=== PATIENT | female | born 2000 | race African-American/Black ===

== ENCOUNTER → 2020-06-23 | Outpatient (REF) | payer OTHER | LOC: M SFHCLERA 08:16 | PROVIDERS: ATTEND Physician Assistant | DX: J02.9 Acute pharyngitis, unspecified (principal) ==

== ENCOUNTER 2021-11-22 15:16 | Emergency (ER) | payer OTHER ==
[~2021-11-22] VITALS: Ht 167.6 cm; Wt 77.8 kg
[2021-11-22 15:17] VITALS: BP 139/78
[2021-11-22] MEDS ORDERED: ACETAMINOPHEN 500 MG TAB PO ONE (16:10)
[2021-11-22] MEDS ORDERED: FAMOTIDINE IV BAG 20 MG in IV 1 EA IV ONE (16:20)
[2021-11-22] MEDS ORDERED: AMOX500C PO (16:46)
[2021-11-22] MEDS ORDERED: AMOXICILLIN 500 MG CAP PO ONE (16:50)
[2021-11-22] MEDS ORDERED: FAMOTIDINE INJ 20MG/2ML VIAL (S0028 PER 1) IV ONE (17:00)
[2021-11-22] MEDS ORDERED: guaiFENesin ER 600 MG TAB PO SCH (21:00)
== END 2021-11-22 17:11 | disposition home or self-care (01) ==
LOC: M ED 15:16
DX: J02.9 Acute pharyngitis, unspecified (principal); R68.83 Chills (without fever)

== ENCOUNTER 2021-11-24 17:55 | Inpatient (IN) | payer OTHER ==
[~2021-11-24] VITALS: Ht 167.6 cm; Wt 74.5 kg
[~2021-11-24 17:55] MED LIST: AMOX500C PO
[2021-11-24] MEDS ORDERED: ACETAMINOPHEN TAB 650MG DOSE (2X325MG) PO ONE (18:25)
[2021-11-24 19:37] LABS: BASO % 0.3 % (0.0-1.0); EOS % 0.2 % (0.0-3.0); HEMATOCRIT 36.7 % (36.0-47.0); HEMOGLOBIN 11.9 g/dl (12.0-15.5); LYMPH # 1.4 10^3/uL (1.5-5.0); LYMPH % 12.1 % (24.0-44.0); MEAN CORPUSCULAR HEMOGLOBIN 28.5 pg (27.0-33.0); MEAN CORPUSCULAR HGB CONC 32.4 g/dl (32.0-36.5); MONO % 8.2 % (2.0-8.0); NEUTROPHILS # 9.1 10^3/uL (1.5-8.5); NEUTROPHILS % 78.7 % (36.0-66.0); PLATELET COUNT, AUTOMATED 222 10^3/uL (150-450); RED BLOOD COUNT 4.17 10^6/uL (4.00-5.40); WHITE BLOOD COUNT 11.6 10^3/uL (4.0-10.0)
[2021-11-24 19:51] LABS: BLOOD UREA NITROGEN 9 MG/DL (7-18); CALCIUM LEVEL 8.9 MG/DL (8.5-10.1); CARBON DIOXIDE LEVEL 25 MEQ/L (21-32); CHLORIDE LEVEL 107 MEQ/L (98-107); CREATININE FOR GFR 1.54 MG/DL (0.55-1.30); GLOMERULAR FILTRATION RATE 53.8 (>60); GLUCOSE, FASTING 104 MG/DL (70-100); POTASSIUM SERUM 3.3 MEQ/L (3.5-5.1); SODIUM LEVEL 141 MEQ/L (136-145)
[2021-11-24 19:57] LABS: HCG, SERUM QUALITATIVE NEGATIVE (NEGATIVE)
[2021-11-24 19:59] LABS: MONO REFLEX EBV COMP NEGATIVE (NEGATIVE)
[2021-11-24 21:22] LABS: ALBUMIN 3.3 GM/DL (3.2-5.2); ALT/SGPT 21 IU/L (0-32); AMYLASE 62 U/L (25-115); BILIRUBIN,DIRECT 0.2 MG/DL (0.0-0.2); BILIRUBIN,TOTAL 0.5 MG/DL (0.2-1.0); TOTAL PROTEIN 7.8 GM/DL (6.4-8.2)
[2021-11-24 21:23] LABS: ERYTHROCYTE SEDIMENTATION RATE 54 mm/hr (0-20); LIPASE 73 U/L (73-393)
[2021-11-24] MEDS ORDERED: ONDANSETRON 4MG/2ML VIAL IV ONE (21:50)
[2021-11-24] MEDS ORDERED: NS 1,000 ML IV ONE (21:50)
[2021-11-24] MEDS ORDERED: ONDANSETRON 4MG/2ML VIAL As Ordered ONE (21:51)
[2021-11-24 22:31] LABS: RSV AMPLIFICATION NEGATIVE (NEGATIVE)
[2021-11-25] MEDS ORDERED: ACETAMINOPHEN 325 MG TAB PO ONE (00:25)
[2021-11-25] MEDS ORDERED: dexameTHASONE 20MG/5ML VIAL (J1100 PER 1MG) IV ONE (00:25)
[2021-11-25] MEDS ORDERED: AMPICILLIN SOD/SULBACTAM SOD 3 GM in D5W MINI-BAG PLUS 100 ML IV ONE (00:25)
[2021-11-25] MEDS ORDERED: DECA4TAB PO (00:27)
[2021-11-25] MEDS ORDERED: IBUPROFEN 800 MG TAB PO ONE (01:20)
[2021-11-25] MEDS ORDERED: ACETAMINOPHEN 325 MG/10.15 ML UDC PO PRN (02:10)
[2021-11-25] MEDS ORDERED: MAALOX 30 ML SUSP *UDC PO PRN (02:10)
[2021-11-25] MEDS ORDERED: MOM 30ML SUSPENSION UDC PO PRN (02:10)
[2021-11-25] MEDS: NS 1,000 ML IV SCH ×2 (02:10→10:10)
[2021-11-25] MEDS ORDERED: NS 500 ML IV ONE (02:10)
[2021-11-25] MEDS ORDERED: ONDANSETRON 4MG/2ML VIAL IV PRN (02:25)
[2021-11-25] MEDS ORDERED: AMOX500C PO (02:54)
[2021-11-25] MEDS ORDERED: ACET-897 PO (02:55)
[2021-11-25] MEDS ORDERED: HOME MED LIST COMPLETE! XX SCH (02:55)
[2021-11-25] MEDS: AMPICILLIN SOD/SULBACTAM SOD 1.5 GM in D5W MINI-BAG PLUS 50 ML IV SCH ×2 (06:59→12:59)
[2021-11-25 07:49] LABS: HEMOGLOBIN 11.8 g/dl (12.0-15.5); RED BLOOD COUNT 4.09 10^6/uL (4.00-5.40)
[2021-11-25 07:50] LABS: MEAN CORPUSCULAR HEMOGLOBIN 28.9 pg (27.0-33.0); MEAN CORPUSCULAR HGB CONC 32.8 g/dl (32.0-36.5); PLATELET COUNT, AUTOMATED 247 10^3/uL (150-450)
[2021-11-25] MEDS ORDERED: dexameTHASONE 20MG/5ML VIAL (J1100 PER 1MG) IV SCH (08:00)
[2021-11-25 08:02] LABS: BLOOD UREA NITROGEN 6 MG/DL (7-18); CALCIUM LEVEL 8.4 MG/DL (8.5-10.1); CARBON DIOXIDE LEVEL 23 MEQ/L (21-32); CHLORIDE LEVEL 110 MEQ/L (98-107); CREATININE FOR GFR 1.34 MG/DL (0.55-1.30); GLOMERULAR FILTRATION RATE > 60.0 (>60); GLUCOSE, FASTING 138 MG/DL (70-100); MAGNESIUM LEVEL 2.1 MG/DL (1.8-2.4); POTASSIUM SERUM 3.6 MEQ/L (3.5-5.1); SODIUM LEVEL 142 MEQ/L (136-145)
[2021-11-25 10:07] VITALS: BP 121/78
[2021-11-25] MEDS ORDERED: PRED20TA PO (13:13)
[2021-11-25] MEDS ORDERED: ONDA-83 PO (13:13)
[2021-11-25] MEDS ORDERED: AMOX875T2 PO (13:14)
[2021-11-26 17:14] LABS: EBV AB TO NUCLEAR ANTIGEN >600.0 U/mL (0.0-17.9); EBV VIRAL CAPSID AG IgG 49.8 U/mL (0.0-17.9); EBV VIRAL CAPSID AG IgM <36.0 U/mL (0.0-35.9)
== END 2021-11-25 13:27 | disposition home or self-care (01) | DRG 153 ==
LOC: M ED 17:55 → M ED INP 11-25 02:10
PROVIDERS: ADMIT Family Medicine; ATTEND Family Medicine
DX: J03.90 Acute tonsillitis, unspecified (principal); R65.10 Systemic inflammatory response syndrome (SIRS) of non-infectious origin without acute organ dysfunction; R10.9 Unspecified abdominal pain; Z20.822 Contact with and (suspected) exposure to COVID-19; Z79.2 Long term (current) use of antibiotics; N26.1 Atrophy of kidney (terminal)

== ENCOUNTER 2021-12-04 15:01 | Emergency (ER) | payer OTHER ==
[~2021-12-04] VITALS: Ht 167.6 cm; Wt 78.4 kg
[~2021-12-04 15:01] MED LIST changes: +ACET-897 PO; +AMOX875T2 PO; +DECA4TAB PO; +ONDA-83 PO; +PRED20TA PO
[2021-12-04 16:35] LABS: URINE PREG TEST NEGATIVE (NEGATIVE)
[2021-12-04 17:56] LABS: BASO # 0.1 10^3/uL (0.0-0.2); BASO % 0.5 % (0.0-1.0); EOS # 0.1 10^3/uL (0.0-0.5); EOS % 0.7 % (0.0-3.0); HEMATOCRIT 39.4 % (36.0-47.0); HEMOGLOBIN 12.7 g/dl (12.0-15.5); LYMPH # 4.1 10^3/uL (1.5-5.0); LYMPH % 33.9 % (24.0-44.0); MEAN CORPUSCULAR HEMOGLOBIN 28.7 pg (27.0-33.0); MEAN CORPUSCULAR HGB CONC 32.2 g/dl (32.0-36.5); MEAN CORPUSCULAR VOLUME 89.1 fl (80.0-96.0); MONO # 0.7 10^3/uL (0.0-0.8); MONO % 6.2 % (2.0-8.0); NEUTROPHILS # 6.7 10^3/uL (1.5-8.5); NEUTROPHILS % 55.8 % (36.0-66.0); PLATELET COUNT, AUTOMATED 347 10^3/uL (150-450); RED BLOOD COUNT 4.42 10^6/uL (4.00-5.40)
[2021-12-04] MEDS ORDERED: NS 1,000 ML IV ONE (18:00)
[2021-12-04 18:21] LABS: BLOOD UREA NITROGEN 9 MG/DL (7-18); CALCIUM LEVEL 8.7 MG/DL (8.5-10.1); CARBON DIOXIDE LEVEL 31 MEQ/L (21-32); CHLORIDE LEVEL 106 MEQ/L (98-107); CREATININE FOR GFR 1.07 MG/DL (0.55-1.30); GLOMERULAR FILTRATION RATE > 60.0 (>60); GLUCOSE, FASTING 84 MG/DL (70-100); POTASSIUM SERUM 4.3 MEQ/L (3.5-5.1); SODIUM LEVEL 141 MEQ/L (136-145)
[2021-12-04] MEDS ORDERED: KETOROLAC 30 MG/ML 1ML VIAL IV ONE (18:35)
[2021-12-04 18:54] LABS: GC DNA AMPLIFICATION NEGATIVE (NEGATIVE)
[2021-12-04 20:34] VITALS: BP 115/63
== END 2021-12-04 22:30 | disposition home or self-care (01) ==
LOC: M ED 15:01
DX: N83.201 Unspecified ovarian cyst, right side (principal)
CPT/HCPCS: 36415; 76775; 76856; 80048; 81001; 84703; 85025; 87808; 87810; 87850; 93005; 93976; 96361; 96374; 99284; J1885

== ENCOUNTER 2022-01-12 09:27 | Day surgery (SDC) | payer OTHER ==
[~2022-01-12] VITALS: Ht 167.6 cm; Wt 76.2 kg
[~2022-01-12 09:27] MED LIST changes: +LIDOCAINE 1% MDV 20ML VIAL SQ PRN; +LR 1,000 ML IV ONE
[2022-01-12] MEDS ORDERED: BUPIVACAINE HCL 0.5% 30ML VIAL As Ordered ONE (13:23)
[2022-01-12] MEDS ORDERED: OXYMETAZOLINE 0.05% NASAL SPRAY (AFRIN) As Ordered ONE (13:23)
[2022-01-12] MEDS ORDERED: SUGAMMADEX SODIUM 500 MG/5 ML VIAL (BRIDION) As Ordered ONE (14:03)
[2022-01-12] MEDS ORDERED: fentaNYL 250 MCG/5 ML INJECTION As Ordered ONE (14:04)
[2022-01-12] MEDS ORDERED: ONDANSETRON 4MG/2ML VIAL As Ordered ONE (14:04)
[2022-01-12] MEDS ORDERED: dexameTHASONE 4 MG/ML 1ML VIAL (J1100 PER 1MG) As Ordered ONE (14:04)
[2022-01-12] MEDS ORDERED: LIDOCAINE 2% 100MG/5ML SDV (FOR ANES.) As Ordered ONE (14:04)
[2022-01-12] MEDS ORDERED: MIDAZOLAM INJ 2MG/2ML VIAL (J2250 PER 1MG) As Ordered ONE (14:04)
[2022-01-12] MEDS ORDERED: ROCURONIUM BROMIDE 50 MG/5 ML VIAL As Ordered ONE (14:04)
[2022-01-12] MEDS ORDERED: ACETAMINOPHEN 1000MG 100ML IV BTL (OFIRMEV) (J0131 PER 10MG) As Ordered ONE (14:04)
[2022-01-12] MEDS ORDERED: propofoL 200 MG/20 ML VIAL As Ordered ONE (14:04)
[2022-01-12] MEDS ORDERED: ONDANSETRON 4MG/2ML VIAL IV PRN ×2 (14:55→15:00)
[2022-01-12] MEDS ORDERED: LR 1,000 ML IV SCH ×2 (14:55→15:00)
[2022-01-12] MEDS ORDERED: fentaNYL 100 MCG/2 ML INJECTION IV PRN (14:55)
[2022-01-12] MEDS ORDERED: oxyCODONE 5MG TAB PO PRN (14:55)
[2022-01-12] MEDS ORDERED: METOCLOPRAMIDE INJ 10MG/2ML VIAL (J2765 PER 1) IV PRN (14:55)
[2022-01-12] MEDS ORDERED: HYDROcodone/APAP LIQUID 7.5-325MG 15ML UDC (LORTAB ELIXIR) PO PRN (14:55)
[2022-01-12 16:20] VITALS: BP 126/79
== END 2022-01-12 16:26 | disposition home or self-care (01) ==
LOC: M SDC 09:27
PROVIDERS: ATTEND Otolaryngology
DX: J35.3 Hypertrophy of tonsils with hypertrophy of adenoids (principal); D10.39 Benign neoplasm of other parts of mouth; N17.9 Acute kidney failure, unspecified; Q60.3 Renal hypoplasia, unilateral; Z87.891 Personal history of nicotine dependence
CPT/HCPCS: 42106; 42821; 88302; 88305; J0131; J1100; J2250; J2405; J3010

== ENCOUNTER → 2022-08-05 | Outpatient (REF) | payer OTHER ==
[~2022-08-05] MED LIST changes: +ACET1TAB55 PO; -LIDOCAINE 1% MDV 20ML VIAL SQ PRN; +LOES1TAB7 PO; -LR 1,000 ML IV ONE; +MIRA3350 PO; +NAPR-885 PO
[2022-08-05 19:36] LABS: COMPLEMENT C3 138 MG/DL (90-180); COMPLEMENT C4 33 MG/DL (10-40)
[2022-08-11 12:08] LABS: ANTI DS-DNA AB Negative (Negative); ANTINUCLEAR ANTIBODIES DIRECT Negative (Negative)
== END ==
LOC: M LAB REF 17:16
PROVIDERS: ATTEND Internal Medicine Nephrology
DX: R80.9 Proteinuria, unspecified (principal)

== ENCOUNTER 2022-08-10 10:44 | Day surgery (SDC) | payer OTHER ==
[~2022-08-10] VITALS: Ht 167.6 cm; Wt 79.4 kg
[~2022-08-10 10:44] MED LIST changes: +NS 1,000 ML IV ONE
[2022-08-10 13:05] VITALS: BP 118/87
== END 2022-08-10 13:08 | disposition home or self-care (01) ==
LOC: M OPP 10:44
PROVIDERS: ATTEND Internal Medicine Gastroenterology
DX: K64.8 Other hemorrhoids (principal); K58.1 Irritable bowel syndrome with constipation; R10.12 Left upper quadrant pain; R10.32 Left lower quadrant pain; Z79.1 Long term (current) use of non-steroidal anti-inflammatories (NSAID); Z79.899 Other long term (current) drug therapy; F32.9 Major depressive disorder, single episode, unspecified; N18.9 Chronic kidney disease, unspecified; Z80.3 Family history of malignant neoplasm of breast

== ENCOUNTER → 2022-08-19 | Outpatient (REF) | payer OTHER ==
[~2022-08-19] MED LIST changes: -NS 1,000 ML IV ONE
== END ==
LOC: M LAB REF 17:29
PROVIDERS: ATTEND Internal Medicine Nephrology
DX: R80.9 Proteinuria, unspecified (principal)

== ENCOUNTER → 2023-01-06 | Outpatient (CLI) | payer OTHER | LOC: M PLAIMG 13:35 | PROVIDERS: ATTEND Nurse Practitioner Family | DX: R06.02 Shortness of breath (principal); M54.50 Low back pain, unspecified; M25.531 Pain in right wrist; M25.532 Pain in left wrist; M79.641 Pain in right hand; M79.642 Pain in left hand; M25.561 Pain in right knee; M25.562 Pain in left knee; M25.572 Pain in left ankle and joints of left foot ==

== ENCOUNTER → 2023-11-04 | Outpatient (REF) | LOC: M EMP 10:59 | PROVIDERS: ATTEND Family Medicine | DX: Z02.1 Encounter for pre-employment examination (principal) ==

== ENCOUNTER 2023-12-10 09:26 | Emergency (ER) | payer OTHER ==
[~2023-12-10] VITALS: Ht 167.6 cm; Wt 88.6 kg
[2023-12-10] MEDS ORDERED: BUPR150T12 (09:35)
[2023-12-10 10:15] LABS: BASO % 0.4 % (0.0-1.0); EOS # 0.1 10^3/uL (0.0-0.5); EOS % 0.8 % (0.0-3.0); HEMATOCRIT 34.8 % (36.0-47.0); HEMOGLOBIN 11.5 g/dl (12.0-15.5); LYMPH # 2.1 10^3/uL (1.5-5.0); LYMPH % 20.3 % (24.0-44.0); MEAN CORPUSCULAR HEMOGLOBIN 29.5 pg (27.0-33.0); MEAN CORPUSCULAR VOLUME 89.2 fl (80.0-96.0); MONO # 0.6 10^3/uL (0.0-0.8); MONO % 5.4 % (2.0-8.0); NEUTROPHILS # 7.2 10^3/uL (1.5-8.5); NEUTROPHILS % 71.5 % (36.0-66.0); PLATELET COUNT, AUTOMATED 207 10^3/uL (150-450); WHITE BLOOD COUNT 10.1 10^3/uL (4.0-10.0)
[2023-12-10 10:35] LABS: AMORPHOUS SEDIMENT SMALL (NEGATIVE); APPEARANCE, URINE HAZY (CLEAR); BACTERIA, URINE AUTO NEGATIVE (NEGATIVE); BILIRUBIN, URINE AUTO NEGATIVE (NEGATIVE); BLOOD, URINE BLOOD NEGATIVE (NEGATIVE); COLOR, URINE YELLOW (YELLOW); GLUCOSE, URINE (UA) AUTO NEGATIVE (NEGATIVE); KETONE, URINE AUTO NEGATIVE (NEGATIVE); LEUKOCYTE ESTERASE, URINE AUTO NEGATIVE (NEGATIVE); MUCUS, URINE SMALL (NEGATIVE); NITRITE, URINE AUTO NEGATIVE (NEGATIVE); PROTEIN, URINE AUTO NEGATIVE (NEGATIVE); RBC, URINE AUTO 0 /HPF (0-3); SPECIFIC GRAVITY URINE AUTO 1.015 (1.002-1.035); SQUAMOUS EPITHELIAL CELL UR AU 6 /HPF (0-6); UROBILINOGEN, URINE AUTO 0.2 mg/dL (0.0-2.0); WBC, URINE AUTO 1 /HPF (0-3)
[2023-12-10 10:38] LABS: ALBUMIN 2.9 G/DL (3.2-5.2); ALKALINE PHOSPHATASE 51 U/L (46-116); ALT/SGPT 28 U/L (7.0-40); AST/SGOT 21 U/L (<34); BILIRUBIN,DIRECT 0.1 MG/DL (<0.4); BILIRUBIN,TOTAL 0.5 MG/DL (0.3-1.2); BLOOD UREA NITROGEN 5 MG/DL (9-23); CALCIUM LEVEL 8.6 MG/DL (8.5-10.1); CARBON DIOXIDE LEVEL 25 MMOL/L (20-31); CHLORIDE LEVEL 109 MMOL/L (98-107); CREATININE FOR GFR 0.65 MG/DL (0.55-1.30); GLOMERULAR FILTRATION RATE > 60.0 (>60); GLUCOSE, FASTING 95 MG/DL (60-100); SODIUM LEVEL 138 MMOL/L (136-145); TOTAL PROTEIN 6.3 G/DL (5.7-8.2)
[2023-12-10 10:51] LABS: HCG, SERUM QUANTITATIVE 58020.8 MIU/ML (<4.2)
[2023-12-10 13:59] VITALS: BP 102/68; TEMP 97.2; O2SAT 100
== END 2023-12-10 14:00 | disposition home or self-care (01) ==
LOC: M ED 09:26
DX: O26.892 Other specified pregnancy related conditions, second trimester (principal); Z3A.14 14 weeks gestation of pregnancy; O99.342 Other mental disorders complicating pregnancy, second trimester

== ENCOUNTER → 2023-12-23 | Outpatient (CLI) | payer OTHER ==
[~2023-12-23] MED LIST changes: +BUPR150T12
[2023-12-23 17:22] LABS: LDH LACTATE DEHYDROGENASE 173 U/L (120-246)
[2023-12-23 17:23] LABS: ALT/SGPT 69 U/L (7.0-40); AST/SGOT 42 U/L (<34); BILIRUBIN,TOTAL 0.6 MG/DL (0.3-1.2); CREATININE FOR GFR 0.67 MG/DL (0.55-1.30); GLOMERULAR FILTRATION RATE > 60.0 (>60)
[2023-12-23 17:50] LABS: CREATININE,RANDOM URINE 109.2 MG/DL
[2023-12-23 17:51] LABS: TOTAL PROTEIN,RANDOM URINE < 6.0 MG/DL (0.0-14.0)
[2023-12-23 18:00] LABS: HEMATOCRIT 34.2 % (36.0-47.0); HEMOGLOBIN 11.4 g/dl (12.0-15.5); MEAN CORPUSCULAR HEMOGLOBIN 30.2 pg (27.0-33.0); MEAN CORPUSCULAR HGB CONC 33.3 g/dl (32.0-36.5); MEAN CORPUSCULAR VOLUME 90.7 fl (80.0-96.0); PLATELET COUNT, AUTOMATED 244 10^3/uL (150-450); RED BLOOD COUNT 3.77 10^6/uL (4.00-5.40); WHITE BLOOD COUNT 10.8 10^3/uL (4.0-10.0)
[2023-12-23 18:08] LABS: HIV 1&2 SCREEN NEGATIVE (NEGATIVE)
[2023-12-23 18:17] LABS: HEPATITIS C VIRUS ABY INDEX 0.03 INDEX (<0.8)
[2023-12-23 19:09] LABS: GC DNA AMPLIFICATION NEGATIVE (NEGATIVE)
== END ==
LOC: M PLALAB 15:14
PROVIDERS: ATTEND Advanced Practice Midwife
DX: Z34.82 Encounter for supervision of other normal pregnancy, second trimester (principal); Z79.899 Other long term (current) drug therapy

== ENCOUNTER → 2023-12-23 | Outpatient (CLI) | payer OTHER | LOC: M WHC 15:03 | PROVIDERS: ATTEND Advanced Practice Midwife | DX: Z53.9 Procedure and treatment not carried out, unspecified reason (principal) ==

== ENCOUNTER → 2024-01-14 | Outpatient (CLI) | payer OTHER | LOC: M WHC 10:15 | PROVIDERS: ATTEND Advanced Practice Midwife | DX: Z34.82 Encounter for supervision of other normal pregnancy, second trimester (principal) ==

== ENCOUNTER → 2024-03-01 | Outpatient (CLI) | payer OTHER ==
[2024-03-01 13:14] LABS: HEMATOCRIT 35.2 % (36.0-47.0); HEMOGLOBIN 11.7 g/dl (12.0-15.5); MEAN CORPUSCULAR HEMOGLOBIN 29.7 pg (27.0-33.0); MEAN CORPUSCULAR HGB CONC 33.2 g/dl (32.0-36.5); MEAN CORPUSCULAR VOLUME 89.3 fl (80.0-96.0); PLATELET COUNT, AUTOMATED 228 10^3/uL (150-450); RED BLOOD COUNT 3.94 10^6/uL (4.00-5.40); WHITE BLOOD COUNT 11.9 10^3/uL (4.0-10.0)
[2024-03-01 14:58] LABS: GC DNA AMPLIFICATION NEGATIVE (NEGATIVE)
== END ==
LOC: M PLALAB 09:43
PROVIDERS: ATTEND Obstetrics & Gynecology
DX: Z34.82 Encounter for supervision of other normal pregnancy, second trimester (principal); Z11.3 Encounter for screening for infections with a predominantly sexual mode of transmission

== ENCOUNTER → 2024-05-09 | Outpatient (REF) | payer OTHER | LOC: M SFHCWAGY 12:57 | PROVIDERS: ATTEND Advanced Practice Midwife | DX: Z34.83 Encounter for supervision of other normal pregnancy, third trimester (principal) ==

== ENCOUNTER 2024-05-28 19:51 | Outpatient (CLI) | payer OTHER ==
[~2024-05-28] VITALS: Ht 167.6 cm; Wt 104.6 kg
[2024-05-28] MEDS ORDERED: PRENTAB9 PO (20:11)
[2024-05-28] MEDS ORDERED: FAMO20TA PO (20:11)
[2024-05-28 20:13] VITALS: BP 124/91
[2024-05-28 20:30] VITALS: BP 134/99
[2024-05-28 20:36] VITALS: BP 130/89
[2024-05-28] MEDS: ACETAMINOPHEN 500 MG TAB PO PRN (20:44)
[2024-05-28 20:50] VITALS: BP 121/77
[2024-05-28 21:04] VITALS: BP 119/79
[2024-05-28 21:04] LABS: APPEARANCE, URINE CLEAR (CLEAR); BACTERIA, URINE AUTO 1+ (NEGATIVE); BILIRUBIN, URINE AUTO NEGATIVE (NEGATIVE); BLOOD, URINE BLOOD NEGATIVE (NEGATIVE); COLOR, URINE STRAW (YELLOW); GLUCOSE, URINE (UA) AUTO NEGATIVE (NEGATIVE); KETONE, URINE AUTO NEGATIVE (NEGATIVE); LEUKOCYTE ESTERASE, URINE AUTO NEGATIVE (NEGATIVE); NITRITE, URINE AUTO NEGATIVE (NEGATIVE); PROTEIN, URINE AUTO NEGATIVE (NEGATIVE); RBC, URINE AUTO 0 /HPF (0-3); SPECIFIC GRAVITY URINE AUTO 1.001 (1.002-1.035); SQUAMOUS EPITHELIAL CELL UR AU 0 /HPF (0-6); UROBILINOGEN, URINE AUTO 0.2 mg/dL (0.0-2.0); WBC, URINE AUTO 0 /HPF (0-3)
[2024-05-28 22:12] LABS: CREATININE,RANDOM URINE 15.9 MG/DL
[2024-05-28 22:14] LABS: TOTAL PROTEIN,RANDOM URINE < 6.0 MG/DL (0.0-14.0)
[2024-05-28 22:28] VITALS: BP 125/83
== END 2024-05-28 22:40 | disposition home or self-care (01) ==
LOC: M LDO 19:51
PROVIDERS: ATTEND Obstetrics & Gynecology
DX: O26.893 Other specified pregnancy related conditions, third trimester (principal); O36.8139 Decreased fetal movements, third trimester, other fetus; M54.50 Low back pain, unspecified; Z3A.38 38 weeks gestation of pregnancy
CPT/HCPCS: 59025; 81001; 82570; 84156; 87086; G0463

== ENCOUNTER 2024-10-03 10:00 | Outpatient (RCR) | payer OTHER ==
[~2024-10-03 10:00] MED LIST changes: +BUPR-597 PO; +FAMO20TA PO; +PRENTAB9 PO
== END 2024-10-10 ==
LOC: M PT 10:00
PROVIDERS: ATTEND Obstetrics & Gynecology
DX: R10.2 Pelvic and perineal pain (principal)

== ENCOUNTER 2024-10-31 14:30 | Outpatient (RCR) | payer OTHER | END 2024-11-10 | LOC: M PT 14:30 | PROVIDERS: ATTEND Obstetrics & Gynecology | DX: Z39.2 Encounter for routine postpartum follow-up (principal); R10.2 Pelvic and perineal pain ==